=== PATIENT | male | born 1945 | race Caucasian/White ===

== ENCOUNTER → 2022-12-28 14:34 | Outpatient (CLI) | payer MEDICARE, SELFPAY ==
[2022-12-28 15:25] LABS: Add Manual Diff / Slide Review NO; Basophils Absolute Auto 100 /uL (0-100); Basophils Percent Auto 0.8 % (0-2); Eosinophils Absolute Auto 200 /uL (0-450); Eosinophils Percent Auto 2.4 % (2-4); Hemoglobin 13.5 g/dL (13.5-17.5); Lymphocytes Absolute Auto 1600 /uL (1100-4500); Lymphocytes Percent Auto 17.2 % (25-40); Mean Corpuscular HGB Conc 33.8 % (30-36); Mean Corpuscular Volume 91.9 fL (80-100); Monocytes Absolute Auto 800 /uL (0-900); Neutrophils Absolute Auto 6400 /uL (1500-7000); Neutrophils Percent Auto 70.6 % (50-75); Platelet Count 224 X10^3/uL (150-400); Red Blood Cell Count 4.35 X10^6/uL (4.5-5.9); Red Cell Distribution Width 13.9 % (11.6-14.8); White Blood Cell Count 9.1 X10^3/uL (4.5-11.0)
[2022-12-28 15:35] LABS: Hemoglobin A1C% w Est Avg Glu 5.5 % (4.0-6.0)
[2022-12-28 15:45] LABS: Appearance Urine UA CLEAR; Bilirubin Urine UA NEGATIVE (NEGATIVE); Color Urine UA YELLOW; Glucose Urine UA NEGATIVE (Negative); Ketones Urine UA NEGATIVE (NEGATIVE); Leukocyte Esterase Urine UA 1+ (NEGATIVE); Nitrite Urine UA NEGATIVE (Negative); Occult Blood Urine UA NEGATIVE (Negative); Protein Urine UA NEGATIVE (Negative); Specific Gravity Urine UA 1.015 (1.000-1.035); Urobilinogen Urine UA 0.2 E.U./dL (0.2); pH Urine UA 5.5 (4.5-8.0)
[2022-12-28 16:02] LABS: RBC Urine None Seen (0-5/HPF)
[2022-12-28 16:03] LABS: Bacteria Urine None Seen; Culture Indicated Urine Cult Not Indicated; Squamous Epithelial Cell Urine None Seen (0-5/HPF); WBC Urine 1-5/HPF (0-5/HPF)
[2022-12-28 16:06] LABS: BUN Creatinine Ratio 19.4 (6-22); Blood Urea Nitrogen 13 mg/dL (9-20); Calcium 9.9 mg/dL (8.4-10.2); Carbon Dioxide 27 mmol/L (22-32); Chloride 103 mmol/L (98-107); Estimated Glomerular Filt Rate > 60 mL/min (>60); Glucose 108 mg/dL (80-110); HEMOLYSIS < 15 (0-50); Potassium 4.2 mmol/L (3.4-5.1); Sodium 137 mmol/L (137-145)
== END ==
PROVIDERS: Referring Provider Orthopaedic Surgery; Visit Provider Orthopaedic Surgery
DX: Z01.818 Encounter for other preprocedural examination (principal); R73.9 Hyperglycemia, unspecified; Z01.812 Encounter for preprocedural laboratory examination; N39.0 Urinary tract infection, site not specified
CPT/HCPCS: 36415; 80048; 81001; 83036; 85025; 93005; 93010

== ENCOUNTER 2023-03-24 11:42 | Day surgery (SDC) | payer MEDICARE, SELFPAY ==
[2023-03-16 08:21] VITALS: BMI 22.4
[2023-03-24] VITALS (9 sets, daily range): BP systolic 115–149; BP diastolic 59–88; PULSE 57–77; RESP 10–18; TEMP 35.8–36.7; O2SAT 98–100; BMI 22.4; BMI 24.5
--- NOTE | 2023-03-24 | DI.RAD.S_ITS ---
PROCEDURE: XR HIP W PEL IF DONE RT 2V INDICATIONS: RIGHT ANTERIOR TECHNIQUE: AP pelvis and lateral view of the hip acquired. COMPARISON: [facility], CR, XR HIP W PEL IF DONE RT 2V, 03/24/2023, 15:16. FINDINGS: Bones: Patient is status post right hip arthroplasty, with hardware components in expected positions. The hip joint appears congruent. The visualized bony structures appear intact. Advanced degenerative changes at the left hip. Soft tissues: Overlying postoperative changes are noted. No suspicious soft tissue densities. IMPRESSION: Expected post-operative appearance of the right hip arthroplasty. Dictated by: Lang Barrios M.D. on 03/24/2023 at 18:02 Approved by: Lang Barrios M.D. on 03/24/2023 at 18:03
--- NOTE | 2023-03-24 06:00 | DI.RAD.S_ITS ---
PROCEDURE: XR HIP W PEL IF DONE RT 2V INDICATIONS: LON TECHNIQUE: Multiple intraoperative views of the hip acquired. COMPARISON: [facility], CR, XR PELVIS WITH LATERAL HIP RIGHT, 03/04/2023, 14:01. [facility], CR, XR HIP W PEL IF DONE RT 2V, 03/24/2023, 16:54. FINDINGS: Multiple intraoperative views of the hip during right hip arthroplasty demonstrate hardware in appropriate position. IMPRESSION: Multiple intraoperative views of the hip during right hip arthroplasty demonstrate hardware in appropriate position. Dictated by: Carlos Hernandez M.D. on 03/25/2023 at 8:39 Approved by: Carlos Henrandez M.D. on 03/25/2023 at 8:40
[2023-03-24] MEDS: CELECOXIB 200 MG CAPSULE PO (12:18)
[2023-03-24] MEDS: ACETAMINOPHEN 325 MG TABLET 975 MG PO (12:19)
[2023-03-24] MEDS: LACTATED RINGERS 1,000 ML 42 ML IV ×2 (12:37→15:37)
[2023-03-24] MEDS: VANCOMYCIN 1,000 MG/200 ML PIGGYBACK 200 MG IV (12:47)
--- NOTE | 2023-03-24 13:45 | SUR.OPER ---
Supine on padded [place] table with bilateral legs secured in padded positioning boots and suspended in positioning spars, operative leg in traction per surgeon. Head on one pillow. Arm on non-operative side secured on padded armboard <90 degrees abduction. Arm on operative side padded and resting across chest then secured with tape over sheet. Padded perineal post in place per surgeon.
--- NOTE | 2023-03-24 13:53 | P.OP_ITS ---
Operative Date/Time/Diagnoses Date of procedure: 03/24/23 Time of procedure: 14:10 Pre-op diagnosis: Severe right hip OA Post-op diagnosis: same Procedure & Clinicians Procedure: Right total hip arthroplasty anterior approach Same procedure as scheduled: Yes Indications: The patient has had progressively worsening right hip pain with radiographic changes consistent with arthritis. Non-operative management has failed and the patient has requested total hip replacement. The risks, benefits and alternatives to surgery were discussed with the patient prior to proceeding. Risks discussed included, but were not limited to, failure to relieve pain, leg length discrepancy, dislocation, stiffness, infection, nerve damage, deep venous thrombosis, pulmonary embolism, stroke, coma, heart attack, permanent paralysis and , as well as the potential need for eventual revision of the prosthetic. Surgeon: Madhavi Kahn Security Sergeant: Colin Worthington Anesthesia Type: General and Spinal Operative Notes Findings: Severe right hip OA, adequate stability, adequate bone Closure Type: primary Specimen(s): none sent Prosthetic devices, grafts, tissues, transplants, or devices: Kahn and nephew size 58 R3, neutral poly liner, one 6.5 mm screw, polar stem lateralized with collar size 7, 36+ 4 cobalt chrome head Estimated Blood Loss (mL): 250 Blood products transfused: none Procedure in detail: The patient was brought to the operating room. Patient was carefully positioned in the supine position. Time-out was performed and antibiotics were given. Anesthesia was induced. He was positioned in the on the table in order to allow hyperextension of the hip. The right lower extremity was prepped and draped in a standard sterile fashion. An anterior right hip incision was made 1 fingerbreadth lateral to the anterior superior iliac spine and extended distally towards the greater trochanter. Dissection was carried out through skin and subcutaneous tissues. Superficial hemostasis was achieved. The fascia over the tensor fascia david was defined and incised with a knife. Two Allis clamps were used to grasp the fascia. Tensor fascia david was retracted laterally. A gelpi retractor was placed. Dissection was carried out down along the neck. The circumflex vessels were carefully identified and cauterized with the Aqua Mantis. A PA was used during the procedure was essential for intraoperative retraction safe implantation of the components. They are also helpful in assisting for adequate hemostasis. There was good visualization of the femoral neck. A Cobra was placed superior to the neck and the gluteus fibers were carefully stripped from that superior aspect of the capsule. A 2nd retractor was placed along the inferior aspect of the neck. The rectus insertion along the capsule was partially released. A 3rd retractor that was then gently placed over the rim of the acetabulum under the rectus. Capsule was carefully incised and released from the intertrochanteric line circumferentially superior to the mid sagittal line and inferiorly to the mid sagittal line until the lesser trochanter was palpable. A tag stitch was placed both in the superior and inferior limb of the capsular insertion. Along the acetabulum capsule was also released up to the mid sagittal 12:00 position. A portion of the labrum was resected. A saw was used to perform an osteotomy at the level of the intertrochanteric line and the junction of the superior femoral neck leaving approximately 1 finger breath of residual inferior neck above the lesser trochanter. A 2nd cut was made along the femoral neck at the base of the head and a napkin ring of neck was removed. Corkscrew was placed in the femoral head and the head was removed without difficulty. Retractors were then repositioned around the acetabulum. Residual labrum was resected and additional osteophytes were removed. A reamer that was 4 mm below the templated size was placed by hand in the acetabulum and it was reamed to centralize the acetabulum. It was then reamed up to 2 under the templated size and fluoroscopy was brought in to confirm the position of the reaming and depth of reaming. I reamed 1 under the anticipated size. A trial cup was placed and noted that it was appropriately sized and fluoroscopy confirmed position and depth. The component was open and inserted without difficulty fluoroscopic imaging was used to confirm that the cup had been adequately seated and was well positioned. It was further stabilized with a single screw. Neutral poly liner was placed. The cup was tested and noted to be stable. Attention was then directed to the femur. The femur was gently hyperextended additional capsular release was performed as needed in order to allow adequate visualization of the proximal femur with elevation of the femur. Patient was placed in a hyperextended slightly adducted position with maximum external rotation. Box osteotome was used to check for any residual neck as well as sclerotic bone along the trochanter. [place] pepper was placed in the femur. Additional broaching was performed. Canal finder was used to determine the alignment of the canal and position. Size 1 broach was placed. The canal was then appropriately broached up to the templated size as long as there was adequate stability of the broach and serial advancement of the broach without excessive impingement. Specific attention was directed at avoiding varus attempting to direct the distal aspect of the broach more anteriorly and avoiding excessive anteversion. Initial trial reduction with a size offset some evidence of anterior instability. I checked the version of the stem. I also did a trial reduction with a +4 and a lateralized stem. There was improved stability both with the +4 standard and lateralized stem. Trial reduction showed acceptable range of motion, good stability, no posterior impingement, gnosticism of leg length and appropriate lateral shuck. I also hyperflexed the hip and checked that there was no impingement anteriorly and there was good stability with flexion, adduction and internal rotation. Marcaine and Exparel were injected. I went up to a size 7 on the stem and carefully looked at the version of the stem. The stem was placed without difficulty. Repeat trial reduction and x-ray showed acceptable overall position, length, and no evidence of the femoral fracture. Final head was lobito kyeanna. Wound was meticulously irrigated with normal saline. The hip was reduced and additional Exparel and Marcaine were injected. We specifically did a final check of range of motion and stability and there was good stability. The capsule was closed with interrupted nonabsorbable sutures. The fascia of the tensor was closed with interrupted and running Vicryl. No drain was placed. Any tensor fascia david muscle that appeared to be contused or injured which was a minimal amount was carefully resected. Capsule around the tensor was injected with Exparel and Marcaine. The skin was closed with barbed stitches for the subcutaneous tissue and skin. We also used surgical glue. The wound was dressed sterilely. Brief Betadine soak was also used and was meticulously irrigated with normal saline. Patient was transferred to recovery room in satisfactory condition. Complications: none Post-operative Condition: stable Disposition: Acute Care Plan for aftercare: The patient will be maintained on a standard total hip replacement protocol with weight bearing as tolerated and anterior hip precautions. The patient will receive Aspirin and sequential compression devices for DVT prophylaxis. The patient will be discharged home when safe for the home environment.
[2023-03-24] MEDS: CEFAZOLIN 2 GM/100 ML PREMIX 100 ML IV ×2 (14:08→21:39)
[2023-03-24] MEDS: BUPIVACAINE LIPOSOME 266 MG/20 ML VIAL INJ (14:32)
[2023-03-24] MEDS: TRANEXAMIC ACID 1,000 MG VIAL 1000 MG INJ (14:33)
[2023-03-24] MEDS: BUPIVACAINE 0.25% (PF) 60 ML, EPINEPHrine 0.3 MG INJ (14:33)
[2023-03-24] MEDS: IBUPROFEN 400 MG TABLET PO ×2 (17:45→20:30)
[2023-03-24] MEDS: ACETAMINOPHEN 325 MG TABLET 650 MG PO ×2 (17:45→22:27)
[2023-03-24] MEDS: LACTATED RINGERS 1,000 ML 100 ML IV (17:47)
[2023-03-24] MEDS: DOCUSATE 100 MG CAPSULE PO (20:30)
[2023-03-24] MEDS: ASPIRIN EC 81 MG TABLET PO (20:30)
[2023-03-25] MEDS: IBUPROFEN 400 MG TABLET PO ×2 (02:27→09:34)
[2023-03-25] MEDS: ACETAMINOPHEN 325 MG TABLET 650 MG PO (05:13)
[2023-03-25] MEDS: CEFAZOLIN 2 GM/100 ML PREMIX 100 ML IV (05:13)
[2023-03-25 06:26] LABS: Hematocrit 36.7 % (41-53); Hemoglobin 12.5 g/dL (13.5-17.5)
--- NOTE | 2023-03-25 07:50 | P.DS_ITS ---
History of Present Illness History of Present Illness Date Patient Seen: 03/25/23 Time Patient Seen: 07:50 Chief complaint: Hip pain Narrative: Patient states his hip pain is mild. Denies fever or chills. No nausea or vomiting. Patient has walked in the halls twice. Patient has his at home to assist him. Otherwise without complaints. Discharge Providers Provider Discharge Date: 03/25/23 Primary care physician: Nelly Cota MD Consults: 03/24/23 06:00 Consult to Anesthesiology Routine Comment: Consulting Provider: Anesthesiologist Reason for consultation: Regional block for post operative pain control 03/24/23 17:22 Consult to Discharge Planning Routine Comment: Consult to Occupational Therapy Evaluate & Treat Comment: Physician Instructions: Evaluate and treat Consult to Physical Therapy Evaluate & Treat Comment: Physician Instructions: post op LON protocol Discharge provider: Colin Worthington PA-C Summary Hospital Course Discharge Diagnosis: Severe right hip osteoarthritis Hospital Course: Right total hip arthroplasty anterior approach Same procedure as scheduled: Yes Indications: The patient has had progressively worsening right hip pain with radiographic changes consistent with arthritis. Non-operative management has failed and the patient has requested total hip replacement. The risks, benefits and alternatives to surgery were discussed with the patient prior to proceeding. Risks discussed included, but were not limited to, failure to relieve pain, leg length discrepancy, dislocation, stiffness, infection, nerve damage, deep venous thrombosis, pulmonary embolism, stroke, coma, heart attack, permanent paralysis and , as well as the potential need for eventual revision of the prosthetic. Surgeon: Madhavi Kahn Production Operations Inspector: Colin Worthington Anesthesia Type: General and Spinal Operative Notes Findings: Severe right hip OA, adequate stability, adequate bone Closure Type: primary Specimen(s): none sent Prosthetic devices, grafts, tissues, transplants, or devices: Kahn and nephew size 58 R3, neutral poly liner, one 6.5 mm screw, polar stem lateralized with collar size 7, 36+ 4 cobalt chrome head Estimated Blood Loss (mL): 250 Blood products transfused: none Patient admitted to the hospital for right total hip arthroplasty. Patient consented to the same. Patient underwent right total hip arthroplasty, anterior approach on March 24, 2023. Patient back in his room recovering well as in stable condition. Continue multimodal pain management, aspirin 81 mg b.i.d. for DVT prophylaxis. Mobilize with physical therapy this morning. Discharge home today after physical therapy if safe for home environment. Status at Discharge Cognitive/behavioral status at discharge: at baseline, oriented Functional status at discharge: uses cane/walker Overall status at discharge: patient is progressing back to baseline Exam Vital Signs (past 8 hours): Oxygen Delivery Method Room Air Oxygen Flow Rate 0 Objective Labs 03/25/23 06:10 Labs: Laboratory Results - last 24 hr 03/25/23 06:10 Hgb 12.5 L Hct 36.7 L PFSH Medical History Osteoarthritis Surgical History Hx of tonsillectomy Social History household members: spouse Smoking Status: Never smoker alcohol intake: current Discharge Assessment & Plan Assessment and Plan Assessment: Patient progressing as expected status post right total hip arthroplasty Plan of Treatment: Multimodal pain management Weight-bearing as tolerated, anterior hip precautions Aspirin 81 mg b.i.d. for DVT prophylaxis Discharge home today after physical therapy if safe for home environment. Discharge Plan Discharge orders & Medications Discharge Orders: Discharge (Order); Ordered 03/25/23 Ordered By: Colin Worthington Prescriptions: New acetaminophen 325 mg Tablet 650 mg PO Q6H Qty: 60 0RF polyethylene glycol 3350 17 gram Powder In Packet 17 gm PO DAILY PRN (Reason: Constipation) Qty: 10 0RF aspirin 81 mg Tablet,Delayed Release (Dr/Ec) 81 mg PO BID Qty: 60 0RF ibuprofen 400 mg Tablet 400 mg PO Q4H Qty: 60 0RF oxycodone 5 mg Tablet 5 mg PO Q3H PRN (Reason: Pain, Moderate (4-6)) Qty: 30 0RF Discontinued meloxicam 15 mg Tablet 15 mg PO DAILY Follow up/Referrals: Nelly Cota MD [Primary Care Provider] - Madhavi Kahn MD [Physician] - (2 weeks as scheduled) Diet/Activity/Treatments Diet: Diet as Tolerated Activity: Weightbearing as tolerated, anterior hip precautions Cold/Heat Therapy: Ice to hip as needed Skin/Wound/Dressing Care Report to your healthcare provider any signs of infection, such as:: chills, fever, night sweats, increased pain, unusual drainage and unusual redness Dressing: Keep dressing clean and dry Visit Report/Discharge Packet Instructions: DI for Hip Replacement, DI for Constipation, How to Prevent Falls, DI for Prescription Opioid Use Stand Alone Forms: Patient Portal/API, Stroke Signs & Symptoms, Surgery Discharge Discharge Data Primary Care Provider: Nelly Cota Attending Provider: Madhavi Kahn VTE Deep Vein Thrombosis/Pulmonary Embolism Present on Admission: No
[2023-03-25 08:00] VITALS: BP 123/61; PULSE 65; RESP 22; TEMP 36.7; O2SAT 97
[2023-03-25] MEDS: ASPIRIN EC 81 MG TABLET PO (09:34)
--- NOTE | 2023-03-25 09:43 | OT.IP.EVAL ---
Current Diagnoses Unilateral primary osteoarthritis, right hip (03/24/23) Surgery Performed Operation Date: 03/24/23 14:15 Actual Procedures p Total Hip Arthroplasty/Anterior Approach(Right) - Madhavi Kahn MD Past Medical History (Last Reviewed 03/25/23 @ 07:51 by Colin Worthington PA-C) Osteoarthritis Surgical History (Last Reviewed 03/25/23 @ 07:51 by Colin Worthington PA-C) Hx of tonsillectomy Occupational Therapy Inpatient Evaluation/Re-Eval M1 PT/OT-IP Prior Functional Status Start: 03/25/23 09:45 Freq: NEEDED Status: Active Protocol: Document 03/25/23 09:45 [facility] (Rec: 03/25/23 09:58 [facility] [id number]) Medical Review Prior Functional Status Communication Independent Mobility and Gait Has been using trekking pole in his left hand for outdoor walking. Activities of Daily Living and IADL's Pt states able to do ADL and IADl needs but had pain. Social History Household Members spouse Living Arrangements Apartment/Condo Number of Stairs To Enter/Railing? Pt has 9 steps, landing and then another 7 steps with right rail going up both ways to their apartment. Home Environment Standard Height Toilet,Walk in Shower Home Equipment Front Wheel Walker,Straight Cane,Bedside Commode,Long Handled Shoe Horn,Pcas,Sock Aid Additional Social History Comment Pt has trekking poles. Pt's will be at home to assist the pt. Pt also has a standard FWW that his uses for her hip sx as the small walk in shower does not have any grab bars or room for a shower chair. M2 OT-IP Current Condition Start: 03/25/23 09:45 Freq: Status: Active Protocol: Document 03/25/23 09:45 [facility] (Rec: 03/25/23 09:58 [facility] [id number]) Occupational Therapy Current Condition Current Condition Evaluation Date 03/25/23 Treatment Diagnosis S/P R LON anterior Diagnosis Onset Date 03/24/23 Post Operative Precautions Anterior Hip Precautions No Hip Extension,No Hip External Rotation M3 OT- IP Subjective and Pain Start: 03/25/23 09:45 Freq: Status: Active Protocol: Document 03/25/23 09:45 [facility] (Rec: 03/25/23 09:58 [facility] [id number]) OT- Subjective Occupational Therapy Visit Type Type Initial Evaluation Visit Start Time 09:00 Visit Stop Time 09:43 Occupational Therapy Visit Comments Patient Comments Pt agreed to get up for OT eval and pt's in the room . Patient/Caregiver Goals TO go home. OT Pain Assessment Pain When Pain Assessed At Rest Pain Present Pain Present Pain Reported Location right hip Intensity 2 Scale Used Numeric (0 - 10) M4 OT- IP ADL's Start: 03/25/23 09:45 Freq: Status: Active Protocol: Document 03/25/23 09:45 [facility] (Rec: 03/25/23 09:58 [facility] [id number]) OT [id number] General Evaluation Self-Feeding Ability Independent OT ADL-Grooming General Evaluation Grooming Ability Standby Assistance Areas Needing Assistance Retrieving/Set-up of Grooming Items Comments OT Grooming Comments Able to do while standing. OT ADL-Oral Care General Eval Oral Care Ability Standby Assistance Areas of Assistance Retrieving/Set-Up of Items Comments Oral Care Comments Able to do while standing. OT ADL-Dressing General Eval Upper Body Dressing Ability Independent Lower Body Dressing Ability Moderate Assistance Areas Needing Assistance Socks,Shoes Comments OT Dressing Comments Educated pt to dress the RLE first and take out last and not to do external rotation for socks/shoes. OT ADL-Toileting General Evaluation Toileting Ability Standby Assistance Comments OT Toileting Comments Educated pt to be mindful of his hip while wiping during toileting needs. OT ADL-Bathing Comments OT Bathing Comments Pt states to do at home. Educated pt for care of dressing for showering needs. M5 OT- IP IADL's Start: 03/25/23 09:45 Freq: Status: Active Protocol: Document 03/25/23 09:45 [facility] (Rec: 03/25/23 09:58 [facility] [id number]) OT-Instrumental Activities of Daily Living Deficits IADL Deficits Identified No Deficits Home Safety Awareness Awareness of Need for Assistance at Home Good Awareness Ability to Problem Solve Emergency Able to Problem Solve Situations Medication Management Medication Management No Deficits Identified Money Management Money Management No Deficits Identified Meal Preparation Meal Preparation Caregiver Provides Assist Senior Validation Engineer Senior Validation Engineer Caregiver Provides Assist M6 OT- IP Functional Cognition Start: 03/25/23 09:45 Freq: Status: Active Protocol: Document 03/25/23 09:45 [facility] (Rec: 03/25/23 09:58 [facility] [id number]) Cognitive Factors Limiting Selfcare Function Cognitive Ability Level of Alertness Alert Patient Orientation Name,Age,Birthday,Month,Date, Year,Day of Week,Place, Situation Attention Span Ability Capable of Focused Attention, Capable of Sustained Attention Ability to Follow Commands Able to Follow One Step Commands Safety Awareness Decreased Ability to Apply Precautions Cognitive Comments Cognitive Assessment Comments Pt needing reminders not to take big steps when walking with the FWW. Pt needing reminders to incorporate and focus on his precautions as at time gets distracted if not focusing on the take at hand. OT- Vision and Hearing OT- Hearing Assessment OT- Hearing Assessment WFL OT- Vision Assessment Visual Acuity Glasses All The Time Visual Attentiveness WFL Occular Pursuits WFL M7 OT- IP Mobility and Balance Start: 03/25/23 09:45 Freq: Status: Active Protocol: Document 03/25/23 09:45 [facility] (Rec: 03/25/23 09:58 [facility] [id number]) OT- Bed Mobility Assessment Rolling Level of Assistance Standby Assistance Supine to Sit Supine to Sit Assist Standby Assistance OT-Transfer Assessment Sit to and From Stand Sit to and from Stand Standby Assistance,Contact Guard Assistance Transfers Transfer Ability Standby Assistance Technique Transfer Destination Bed,Chair,Toilet Transfer Technique Stand Step Pivot Devices Transfer Assistive Devices Gait Belt,Front Wheeled Walker Comments Mobility Comments Able to educated of how to assist pt for mobility needs and for the gait belt. OT- Balance Assessment Sitting Balance and Reactions Static Sitting Balance Ability Normal Dynamic Sitting Balance Ability Good Standing Balance and Reactions Static Standing Balance Ability Good Dynamic Standing Balance Ability Fair M8 OT- IP Objective Assessments Start: 03/25/23 09:45 Freq: Status: Active Protocol: Document 03/25/23 09:45 [facility] (Rec: 03/25/23 09:58 [facility] [id number]) OT Gross Range of Motion Upper Extremity Range of Motion Assessment Within Functional Limits OT Strength Upper Extremity Strength Assessment Within Functional Limits M9 OT- IP Assessment and Plan Start: 03/25/23 09:45 Freq: Status: Active Protocol: Document 03/25/23 09:45 [facility] (Rec: 03/25/23 09:58 [facility] [id number]) OT Summary Assessment and Plan Potential Rehabilitation Potential Excellent Analytic Complexity at Evaluation Low Summary OT Impairments Pain,Strength,Balance, Functional Mobility,Dressing, Bathing,Shower Transfers Progress Towards Goals Progressing Toward Goals Assessment Summary Pt low complexity and main barriers are steps, pain and will need assist from his or LB dressing equipment for the shower. Pt has a supportive to assist at home and already has outpt PT scheduled. Goals Self-Feeding Goal Standby Assistance Grooming Goal Independent Dressing Goal Independent,Long Handled Shoe Horn,Pcas,Sock Aid Toileting Goal Independent Bathing Goal Standby Assistance Toilet Transfer Goal Independent Shower Transfer Goal Independent Days to Meet Goals 3 Frequency of Treatment Frequency Of Treatment Once a Day Treatment Plan OT Treatment Plan ADL Training,Functional Mobility,Patient/Family Education,Discharge Planning Discharge Recommendations OT Discharge Recommendations Home with Assistance, Outpatient PT Transportation Needs at Discharge Private Vehicle
--- NOTE | 2023-03-25 11:25 | PT.IIE ---
Current Diagnoses Unilateral primary osteoarthritis, right hip (03/24/23) Surgery Performed Operation Date: 03/24/23 14:15 Actual Procedures p Total Hip Arthroplasty/Anterior Approach(Right) - Madhavi Kahn MD Surgical History (Last Reviewed 03/25/23 @ 07:51 by Colin Worthington PA-C) Hx of tonsillectomy Medical History (Last Reviewed 03/25/23 @ 07:51 by Colin Worthington PA-C) Osteoarthritis Physical Therapy Inpatient Evaluation/Re-Eval M1 PT/OT-IP Prior Functional Status Start: 03/25/23 13:53 Freq: NEEDED Status: Active Protocol: Document 03/25/23 11:25 AB (Rec: 03/25/23 14:02 AB [id number]) Medical Review Prior Functional Status Medical History Reviewed Yes Communication able to make needs knwon Mobility and Gait pt stated that he was independent with all mobilities and ambulation without AD; uses trekking poles for long distance walking Social History Household Members spouse Living Arrangements Apartment/Condo Number of Floors (Floors) One Floor Number of Stairs To Enter/Railing? 9steps + landint + 7 steps R rail ascending to enter the apartment Home Environment Standard Height Toilet,Walk in Shower Home Equipment Front Wheel Walker,Raised Toilet Seat w/Armrests,Hand Held Shower M2 PT-IP Current Condition Start: 03/25/23 13:53 Freq: NEEDED Status: Active Protocol: Document 03/25/23 11:25 AB (Rec: 03/25/23 14:02 AB [id number]) Physical Therapy Current Condition Current Condition Evaluation Date 03/25/23 Treatment Diagnosis s/p R LON anterior; difficulty in walking Onset Date 03/24/23 M3 PT-IP Subjective Start: 03/25/23 13:53 Freq: NEEDED Status: Active Protocol: Document 03/25/23 11:25 AB (Rec: 03/25/23 14:02 AB [id number]) Subjective Physical Therapy Visit Type Type Initial Evaluation Visit Start Time 11:25 Visit Stop Time 11:45 Number of INTEGRATION SOFTWARE ENGINEER Visits 0 Physical Therapy Visit Comments Patient Comments agreeable to do PT Therapy Pain Assessment Pain When Pain Assessed At Rest Pain Present Pain Present Pain Reported Location right hip Intensity 2 Scale Used Numeric (0 - 10) Pain Management Techniques Distraction,Modification of Treatment,Re-positioning M4 PT-IP Mobility and Gait Start: 03/25/23 13:53 Freq: NEEDED Status: Active Protocol: Document 03/25/23 11:25 AB (Rec: 03/25/23 14:02 AB [id number]) PT-Bed Mobility Assessment Supine to Sit Supine to Sit Standby Assistance Sit to Supine Sit to Supine Standby Assistance PT-Transfer Assessment Sit to and From Stand Sit to and from Stand Standby Assistance Equipment Transfer Assistive Device Gait Belt,Front Wheeled Walker Orthotic/Prosthetic Devices or Brace: No Comments Mobility Comments found pt walking with a FWW with spouse SBA. pt stated that he was looking for PT. pt sat on EOB. obtained PLOF and home set up. reviewed hip precautions with pt and pt was able to recall. pt can be impulsive. pt completed bed mobility SBA. completed sit to stand SBA and ambulated in the hallway ~ 200 ft using FWW SBA. completed up/down steps x 3 sets using R rail ascending SBA. pt ambulated back to his room SBA using FWW . pt sitting on EOB. educated pt on bed positioning and car transfer techniques. pt and spouse without further concerns. Left pt with spouse . Gait Assessment Gait Gait Assistance Required: Standby Assistance Distance (Feet) 200 Able to Maintain Weight Bearing Status Yes During Gait Assistive Devices Assistive Device Gait Belt,Front Wheeled Walker Orthotic/Prosthetic Devices or Brace: No Factors Limiting Gait Function Factors Limiting Gait Function Decreased Strength,Pain,Poor Balance,Poor Safety Awareness Stair Climbing Assessment Evaluation Level of Assist On Stairs Standby Assistance Devices Stair Climbing Assistive Devices Right Railing Technique/Endurance Stair Climbing Direction Ascend and Descend Stair Climbing Technique Step to Step Number of Steps Climbed 3 Query Text: Stair Climbing Set # Repetitions (reps) 3 PT-Balance Assessment Sitting Balance and Reactions Static Sitting Balance Ability Normal Dynamic Sitting Balance Ability Normal Standing Balance and Reactions Static Standing Balance Ability Good Dynamic Standing Balance Ability Fair Device Used FWW M5 PT-IP Objective Assessments Start: 03/25/23 13:53 Freq: NEEDED Status: Active Protocol: Document 03/25/23 11:25 AB (Rec: 03/25/23 14:02 AB [id number]) Orientation Orientation/Cognition Level of Alertness Alert Orientation Name,Age,Place,Situation Language Function Ability No Deficits Noted Safety Awareness Decreased Safety Awareness Memory Description No Deficits Noted Gross Range of Motion Lower Extremity ROM Assessment Within Functional Limits Strength Lower Extremity Strength Assessment Within Functional Limits Muscle Tone Muscle Tone WNL Yes M6 PT-IP Treatment Start: 03/25/23 13:53 Freq: NEEDED Status: Active Protocol: Document 03/25/23 11:25 AB (Rec: 03/25/23 14:02 AB [id number]) Physical Therapy Treatment Education Education Provided Precautions,Weight Bearing Status,Safety M7 PT-IP Assessment and Plan Start: 03/25/23 13:53 Freq: NEEDED Status: Active Protocol: Document 03/25/23 11:25 AB (Rec: 03/25/23 14:02 AB [id number]) PT Summary Assessment and Plan Potential Rehabilitation Potential Good Status of Condition at Evaluation Stable Summary Impairments Pain,Strength,Balance, Cognition,Bed Mobility, Transfers,Gait,Activity Tolerance Assessment Summary pt is a 77 y/o M s/p R LON anterior POD 1. pt has R hip anterior precautions and is WBAT. pt plans to go home with spouse to assist him as needed. pt able to mobilize using FWW SBA and may go home when medically stable. Goals Bed Mobility Goal Independent Transfer Goal Independent Gait Goal Independent Gait Distance 300 Other Goals up/down 16 steps R rail ascendingmod I Days to Meet Goals 5 Frequency of Treatment Frequency Of Treatment Twice a Day Treatment Plan Physical Therapy Treatment Plan Bed Mobility Training,Transfer Training,Gait Training, Therapeutic Exercise,Balance Retraining,Post Op Education, Discharge Planning,Hot or Cold Pack,Neuromuscular Re-ed, Coordination Retraining,Manual Therapy Precautions Anterior Hip Precautions No Hip Extension,No Hip External Rotation Weight Bearing Status Weight Bearing Status Weight Bear as Tolerated Allowed Weight Bearing Amount (enter % RLE WBAT or #) (%) Recommendations To Nursing Amount of Assist Needed Standby Assistance Discharge Recommendations PT Discharge Recommendations Home with Assistance, Outpatient PT Transportation Needs at Discharge Private Vehicle
--- NOTE | 2023-03-25 12:11 | CM.DANOTE ---
Initial DCP Assessment Note Pt is a 77 yo male, resident of [place], now POD#1 from [facility] by Dr Kahn PCP: Nelly Cota Payer: DEVANTE Reviewed chart, pt discussed in multidisciplinary rounds this morning. Therapy has cleared pt for return home w/family to assist and pt has planned for home, DC order from Ortho has already been initiated this morning. No barriers identified at this time to patient's safe discharge home w/family to assist; close outpatient f/u recommended. CM team will plan to follow closely in case any DC needs or concerns arise. TERRI Whitmore Discharge Planning/Care Management CM Discharge Assessment Start: 03/25/23 12:07 Freq: Status: Active Protocol: Document 03/25/23 12:07 JOSE LUIS (Rec: 03/25/23 12:10 JOSE LUIS [id number]) Discharge Planning Assessment Assigned Field Services Analyst TERRI Suarez DPOA/Assigned Designee Name Sania (S.O.) Contact Information [phone] Advance Directives? No History Provided By Patient,Medical Record Prior Living Arrangements Apartment/Condo Household Members spouse Type of transporation used prior to Drives own vehicle admit Independent with ADL's Yes Is patient alert and oriented? Yes Patient/Family Preference OP PT Therapy Barriers to Discharge No Discharge Plan Home Transportation Arrangement Spouse Referrals Initiated None needed
--- NOTE | 2023-03-25 14:32 | PC.NURSE ---
Discharge: Pt feels ready to d/c to home. Seen by PA and given d/c instructions, seen by PT/OT and given their instructions, he is safe to go home. Has not needed any narcotics but he did get exparel and he was instructed he might have more pain in a day or two. Has tolerated diet w/out problems. Vds w/out diff. Does follow his hip precautions. Already has priority load from Dr. Gallagher office. Discharge packet reviewed, questions answered. Pt d/c to home via auto w/spouse and friend. Voiced no concerns.
== END 2023-03-25 12:55 | disposition home or self-care (01) ==
LOC: OR 11:43 → AC 11:43
PROVIDERS: PCP Family Medicine; Referring Provider Orthopaedic Surgery; Visit Provider Orthopaedic Surgery
PROC: (CPT 27130; principal; 2023-03-24 14:15)
DX: M16.11 Unilateral primary osteoarthritis, right hip (principal); M25.751 Osteophyte, right hip
CPT/HCPCS: 27130; 36415; 73502; 76000; 85014; 85018; 97161; 97165; 97530; 97535; C1776; C9290; J0171; J0690; J2250; J2704; J3010